=== PATIENT | male | born 1980 | race Caucasian/White ===

== ENCOUNTER 2024-08-11 23:39 | Emergency (ER) | payer MEDICAID ==
[~2024-08-11] VITALS: Ht 170.2 cm; Wt 54.4 kg
[2024-08-11] MEDS ORDERED: ACETAMINOPHEN 325 MG TABLET ONE (23:56)
[2024-08-11] MEDS ORDERED: NAPROXEN 500 MG TABLET ONE (23:56)
[2024-08-12] MEDS: NAPROXEN 500 MG TABLET PO ONE
[2024-08-12] MEDS: ACETAMINOPHEN 500 MG TABLET PO ONE
[2024-08-12] MEDS ORDERED: IBUP-1955 PO (01:09)
[2024-08-12] MEDS ORDERED: ACET-3102 PO (01:09)
[2024-08-12 01:24] VITALS: BP 109/61; TEMP 207; O2SAT 99
== END 2024-08-12 01:26 | disposition home or self-care (01) ==
LOC: ER 23:44
DX: S93.401A Sprain of unspecified ligament of right ankle, initial encounter (principal); F17.210 Nicotine dependence, cigarettes, uncomplicated; V18.2XXA Unspecified pedal cyclist injured in noncollision transport accident in nontraffic accident, initial encounter; Y93.89 Activity, other specified; Y92.89 Other specified places as the place of occurrence of the external cause; Y99.8 Other external cause status
CPT/HCPCS: 73610; 73630; A4606; A4663